=== PATIENT | female | born 2000 | race Caucasian/White ===

== ENCOUNTER 2022-03-25 04:17 | Emergency (ER) | payer OTHER, SELFPAY ==
[2022-03-25 04:26] VITALS: BP 142/62; PULSE 89; RESP 18; TEMP 36.7; O2SAT 100; BMI 37.5
--- NOTE | 2022-03-25 04:36 | HMH.EDDENT ---
Discharge Plan Disposition Patient Disposition: Home, Self-Care Prescriptions Prescriptions: New clindamycin HCl 300 mg capsule 300 mg PO TID Qty: 30 0RF ketorolac 10 mg tablet 10 mg PO TID 3 Days Qty: 10 0RF No Action amoxicillin 500 mg capsule 500 mg PO TID Label Comments: Take 1 capsule By Mouth three times a day Referrals Follow up/Referrals: Daphne Castillo APRN [Primary Care Provider] - See instructions Clinical Impressions Clinical Impression: Pain, dental, Gingivitis Instructions Patient Instructions: DI for Dental Pain Discharge ED Provider: Chance [facility] HPI General Chief complaint: Dental/Oral Stated complaint: Possible infection in mouth Time Seen by Provider: 03/25/22 04:36 Mode of Arrival: Ambulatory Source of Information: Patient and Medical Record Limitations: No Limitations Description of Symptoms (Recalled from ER Triage Doc. by RN): Pt c/o dental pain in right upper side of mouth. States that she noticed swelling and tenderness yesterday so she called her Dentist who prescribed her amoxicillin. 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 History of Present Illness HPI Narrative: acute dental pain over the last 2 days MD Complaint: tooth pain Onset (ago): day(s) Duration: intermittent Severity: moderate Context: history of dental caries Associated symptoms: gum swelling Related Data Home Medications Medication Instructions Recorded Confirmed amoxicillin 500 mg capsule 500 mg PO TID suspected abscess 03/25/22 03/25/22 Previous Rx's Medication Instructions Recorded clindamycin HCl 300 mg capsule 300 mg PO TID #30 caps 03/25/22 ketorolac 10 mg tablet 10 mg PO TID 3 days #10 tabs 03/25/22 Allergies Allergy/AdvReac Type Severity Reaction Status Date / Time No Known Allergies Allergy Verified 07/21/17 19:19 PFSH PFS Social History Smoking Status: Never smoker alcohol intake: never current occupational status: employed Travel in the last 8 weeks: None ROS Obtained: Yes All systems reviewed & no additional complaints except as documented Physical Exam General General appearance: alert Head Head exam: normocephalic Eye Eye exam: Present PERRL and EOMI Expanded ENT Exam Teeth exam: Present gingival swelling Neck Neck exam: Present trachea midline Respiratory Respiratory exam: Absent respiratory distress Cardiovascular Cardiovascular exam: Present regular rate Extremities Exam Extremities exam: Present full ROM Neurological Exam Neurological exam: Present alert, oriented X3 and CN II-XII intact Skin Skin exam: Absent rash Medical Decision Making Medical Records Medical records reviewed: Yes I reviewed the patient's medical records. Aniceto Inquiry Pt receiving controlled substance: No Vital Signs: 03/25/22 04:26 Temperature 98.1 F Temperature Source Oral Pulse Rate [Apical] 89 Respiratory Rate 18 Blood Pressure [Right Arm] 142/62 H Blood Pressure Mean [Right Arm] 88 Blood Pressure Source [Right Arm] Automatic Cuff Blood Pressure Position [Right Arm] Sitting 02 Sat by Pulse Oximetry 100 Oxygen Delivery Method Room Air Lab Data Lab results reviewed: Yes I reviewed the patient's lab results. Orders (Tests/Meds): ED MEDICATIONS Discontinued Medications Generic Name Dose Route Start Last Admin Trade Name Freq PRN Reason Stop Dose Admin Benzocaine/Butamben/Tetracaine HCl 1 gm 03/25/22 04:31 Tetracaine/Benzocaine/Butamben 56 Gm [place] TP 03/25/22 04:32 ONCE ONE Ketorolac Tromethamine 60 mg 03/25/22 04:33 Ketorolac 30mg/Ml Vial IM 03/25/22 04:34 ONCE ONE Lidocaine HCl 15 ml 03/25/22 04:31 Lidocaine 2% Viscous Nikky 15ml Udc PO 03/25/22 04:32 ONCE ONE Medical Decision Narrative: will give abx at this time Critical Care Time Critical Care Time Critical Care Time: No Attestation: On 03/25
[2022-03-25 04:48] VITALS: BP 142/62; PULSE 88; RESP 16; TEMP 36.7; O2SAT 100
== END 2022-03-25 04:59 | disposition home or self-care (01) ==
PROVIDERS: Emergency Provider Emergency Medicine; PCP Nurse Practitioner Family
DX: K05.10 Chronic gingivitis, plaque induced (principal); K08.89 Other specified disorders of teeth and supporting structures
CPT/HCPCS: 96372; 99283

== ENCOUNTER → 2022-03-27 13:14 | Outpatient (CLI) | payer OTHER, SELFPAY ==
[2022-03-27 13:31] LABS: Basophils # 0.1 K/mm3 (0-0.2); Basophils % 1.1 % (0.1-2.0); Eosinophils # 0.4 K/mm3 (0.0-0.4); Eosinophils % 5.1 % (0.1-12.0); Hematocrit 40.9 % (37.0-47.0); Hemoglobin 13.2 g/dL (12.2-16.2); Lymphocytes # 2.1 K/mm3 (0.7-4.5); Lymphocytes % 27.2 % (10-50); Mean Corpuscular HGB Conc 32.3 g/dL (31.8-35.4); Mean Corpuscular Volume 92.7 fl (81-99); Mean Platelet Volume 9.3 fl (7.4-10.4); Monocytes # 0.3 K/mm3 (0.1-1.0); Monocytes % 3.7 % (1.7-9.3); Neutrophils # 4.9 K/mm3 (1.8-7.8); Platelet Count 349 K/mm3 (142-424); Red Blood Count 4.41 M/mm3 (4.20-5.40); Red Cell Distribution Width 14.4 % (11.5-17.5); White Blood Count 7.8 K/mm3 (4.8-10.8)
[2022-03-27 13:46] LABS: Chloride 105 mmol/L (98-107); Sodium 141 mmol/L (136-145)
[2022-03-27 13:47] LABS: Potassium 4.4 mmoL/L (3.5-5.1)
[2022-03-27 13:49] LABS: Alanine Aminotransferase 55 U/L (12-78); Albumin Level 4.3 g/dl (3.5-5.0); Albumin/Globulin Ratio 1.5 (1.1-1.8); Alkaline Phosphatase 103 U/L (38-126); Anion Gap 13.4 mEq/L (5-15); Aspartate Amino Transferase 42 U/L (14-36); Bilirubin,Total 0.3 mg/dl (0.2-1.3); Blood Urea Nitrogen 7 mg/dl (7-17); Carbon Dioxide 27 mmol/L (22.0-30.0); Estimated Glomerular Filt Rate 105 ml/min (>60); GFR (African American) 127 ML/MIN (>60); Globulin 2.9 g/dL (1.3-3.2); Total Protein,Serum 7.2 g/dl (6.3-8.2)
[2022-03-27 13:50] LABS: Calcium 9.5 mg/dl (8.4-10.2); Glucose 88 mg/dl (74-100)
[2022-03-27 13:55] LABS: C-Reactive Protein 8.5 mg/L (0-4)
[2022-03-27 14:09] LABS: Erythrocyte Sedimentation Rate 21 mm/hr (0-20)
--- NOTE | 2022-03-27 14:32 | CT_ITS ---
FINAL REPORT TECHNIQUE: Axial CT images were obtained through the facial bones/sinuses. Coronal reformats were obtained. This study was performed with techniques to keep radiation doses as low as reasonably achievable (ALARA). Individualized dose reduction techniques using automated exposure control or adjustment of mA and/or kV according to the patient's size were employed. CLINICAL HISTORY: FACIAL SWELLING,TOOTH ABCESS, teeth pulled up front, rule out abcess FINDINGS: There is no acute fracture. The orbits are intact. The globes are unremarkable. There appears to been extraction of 2 left upper incisors. There is lucency in the underlying maxilla. There is lobular mucoperiosteal thickening in the bilateral maxillary sinuses. The nasal septum is deviated to the left. IMPRESSION: Lucency in the maxilla underlying recent teeth extractions. Uncertain if this is due to extraction defects or bony erosions. Chronic sinusitis. Reviewed, Interpreted and Dictated by Marvel Olvera MD Transcribed by Glenn Celis Authenticated and [facility]
== END ==
PROVIDERS: PCP Nurse Practitioner Family; Visit Provider Nurse Practitioner Family
DX: R22.0 Localized swelling, mass and lump, head (principal); K04.7 Periapical abscess without sinus
CPT/HCPCS: 36415; 70486; 80053; 85025; 85651; 86140

== ENCOUNTER 2023-05-03 18:48 | Emergency (ER) | payer OTHER, SELFPAY ==
[2023-05-03 19:00] VITALS: BP 118/60; PULSE 124; RESP 27; TEMP 37.6; O2SAT 95; BMI 38.6
--- NOTE | 2023-05-03 19:16 | EXP.UTC ---
Discharge Plan Disposition Patient Disposition: Home, Self-Care Condition: Good Prescriptions Prescriptions: New oseltamivir [Tamiflu] 75 mg capsule 75 mg PO Q12H 5 Days Qty: 10 0RF albuterol sulfate 2.5 mg /3 mL (0.083 %) solution for nebulization 2.5 mg inhalation Q4H PRN (Reason: shortness of breath or wheezing) Qty: 75 0RF Rx Instructions: use as directed No Action amoxicillin 500 mg capsule 500 mg PO TID Patient Comments: Take 1 capsule By Mouth three times a day Referrals Follow up/Referrals: Provider,Referral, MD [Primary Care Provider] - See instructions Activity Restrictions/Add. Instructions Additional Instructions/Restrictions: Start Tamiflu today if you are going to take it. Discussed risk and possible benefits. Lots of rest Increase Fluids water, Gatorade, powerade, pedialyte,if infant/toddler/child Take medications that you discussed with your OBGYN for fever, aches, chills Follow up IMMEDIATELY with your family doctor for new or worsening Symptoms OR no noticeable improvement over the next 48-72 hours, 911 for difficulty or breathing You or your child area contagious until no fever, aches, chills for 24 hours with medication for symptoms Help Prevent the spread of influenza: ?Wash your hands often. Use soap and water. Wash your hands after you use the bathroom, change a child's diapers, or sneeze. Wash your hands before you prepare or eat food. Use gel hand cleanser that has 60% alcohol, when soap and water are not available. Do not touch your eyes, nose, or mouth unless you have washed your hands first. Cover your mouth when you sneeze or cough. Cough into a tissue or the bend of your arm. If you use a tissue, throw it away immediately and wash your hands. Clean shared items with a germ-killing marble cleaner. Clean table surfaces, doorknobs, and light switches. Do not share towels, silverware, and dishes with people who are sick. Wash bed sheets, towels, silverware, and dishes with soap and water. Wear a mask over your mouth and nose if you are sick. The face mask may help protect others from becoming infected with the flu. Wear the mask when in common areas of your home or if you seek care with a healthcare provider. Stay away from others if you are sick. Stay at home until 24 hours after your fever and symptoms are gone. Clinical Impressions Clinical Impression: Influenza Stand Alone Forms Stand Alone Forms: Work/School Release Instructions Patient Instructions: DI for Influenza -- Adult, Oseltamivir Discharge ED Provider: Cierra Rutledge [facility] General Stated complaint: SOA, vomiting, SOUSA, Mode of Arrival: Ambulatory Source of Information: Patient Limitations: No Limitations Time Seen by Provider: 05/03/23 19:16 Description of Symptoms (Recalled from Triage Doc. by RN): PATIENT C/O FEVER, SOA, NO APPETITE, AND HEADACHE X 1 WEEK. SHE STATES SHE SAW HER PCP LAST WEEK AND WAS GIVEN AMOXICILLIN BUT HAS GOTTEN PROGRESSIVELY WORSE HEENT Symptoms (Recalled from RN notes): Yes Resp Symptoms (Recalled from RN notes): Yes Skin Symptoms (Recalled from RN notes): No MS Symptoms (Recalled from RN notes): No Functional Status (Recalled from RN notes): WNL History of Present Illness Provider Complaint: Patient states that she is 12wks OB seen her PCP last week for sinus pressure and chest congestion States that they given her some amoxicillin States that since yesterday she has continued to get worse States that her nose is stopped up, feeling achy all over, fever, chills and no appetite States that she has asthma and uses inhaler and Nebulizer and has been using it States that she feels like it is all in her stopped up head making her feel like she cannot breath States she is not coughing anything up and does not have much of an appetite and feeling
[2023-05-03 19:21] LABS: Apearance,Urine Clear (Clear); Bilirubin,Urine Negative (Negative); Blood, Urine Negative (Negative); Color,Urine Dark Yellow (Yellow); Glucose,Urine (UA) Negative (Negative); Ketones,Urine TRACE (Negative); Protein,Urine 1+ (Negative); Urobilinogen,Urine 0.2 EU/dl (0.2)
[2023-05-03 19:22] LABS: UTC Influenza A Antigen Positive (Negative); UTC Influenza B Antigen Negative (Negative); UTC Leukocyte Esterase,Urine Negative (Negative); UTC Nitrate,Urine Negative (Negative)
[2023-05-03 19:46] VITALS: BP 118/60; PULSE 124; RESP 23; TEMP 37.6; O2SAT 95
== END 2023-05-03 19:53 | disposition home or self-care (01) ==
PROVIDERS: Emergency Provider Nurse Practitioner
DX: O98.511 Other viral diseases complicating pregnancy, first trimester (principal); J10.1 Influenza due to other identified influenza virus with other respiratory manifestations; Z3A.13 13 weeks gestation of pregnancy; R06.02 Shortness of breath; R51.9 Headache, unspecified; R11.2 Nausea with vomiting, unspecified; R50.9 Fever, unspecified; R09.81 Nasal congestion; M79.18 Myalgia, other site
CPT/HCPCS: 81003; 87804; 99204; 99212; G0463